=== PATIENT | female | born 1980 | race Caucasian/White ===

== ENCOUNTER 2016-11-20 16:16 | Emergency (ER) | payer BC, OTHER ==
--- NOTE | 2016-11-20 16:28 | EDM.PDOC ---
ED HPI GENERAL MEDICAL PROBLEM - General Chief Complaint: Neck Problem Stated Complaint: FALL/PAIN BACK OF HEAD/NECK Time Seen by Provider: 11/20/16 16:27 Source of Information: Reports: Patient - History of Present Illness INITIAL COMMENTS - FREE TEXT/NARRATIVE: HISTORY AND PHYSICAL: History of present illness: [] Patient was stenting on the running board of her SUV and all the mattress on the roof, she fell off backwards striking her head she complains of head and neck pain 8/10 pain nonradiating, striking the occiput No fever nausea vomiting chills sweats Review of systems: As per history of present illness and below otherwise all systems reviewed and negative. Past medical history: As per history of present illness and as reviewed below otherwise noncontributory. Surgical history: As per history of present illness and as reviewed below otherwise noncontributory. Social history: No reported history of drug or alcohol abuse. Family history: As per history of present illness and as reviewed below otherwise noncontributory. Physical exam: HEENT: Atraumatic, normocephalic, pupils reactive, negative for conjunctival pallor or scleral icterus, mucous membranes moist, throat clear, neck supple, nontender, trachea midline. Lungs: Clear to auscultation, breath sounds equal bilaterally, chest nontender. Heart: S1S2, regular, negative for clicks, rubs, or JVD. Abdomen: Soft, nondistended, nontender. Negative for masses or hepatosplenomegaly. Negative for costovertebral tenderness. Pelvis: Stable nontender. Genitourinary: Deferred. Rectal: Deferred. Extremities: Atraumatic, negative for cords or calf pain. Neurovascular unremarkable. Neuro: Awake, alert, oriented. Cranial nerves II through XII unremarkable. Cerebellum unremarkable. Motor and sensory unremarkable throughout. Exam nonfocal. Diagnostics: [] CT without Cervical spine without Therapeutics: [] Toradol 60 IM Ibuprofen Impression: [] Mild concussion Neck pain/ muscle spasm Definitive disposition and diagnosis as appropriate pending reevaluation and review of above. Neck Pain Score (Numeric/FACES): 7 - Related Data Allergies Allergy/AdvReac Type Severity Reaction Status Date / Time amoxicillin Allergy Itching Verified 11/20/16 16:29 Penicillins Allergy Itching Verified 11/20/16 16:29 venom-honey bee Allergy Swelling Verified 11/20/16 16:29 [bee venom (honey bee)] Home Meds: Home Meds Cyanocobalamin (Vitamin B-12) [B-12] 2,500 mcg SL DAILY 08/12/15 [History] Docusate Sodium [Colace] 100 mg PO BID #50 cap 08/14/15 [Rx] Ibuprofen [Motrin] 200 - 600 mg PO Q6H PRN #50 tablet 08/14/15 [Rx] Past Medical History Other HEENT History: upper denture Other Gastrointestinal History: ventral hernia - Past Surgical History Other Musculoskeletal Surgeries/Procedures:: neck surgery-disk replacement Social & Family History - Tobacco Use Smoking Status *Q: Current Every Day Smoker Years of Tobacco use: 24 Packs/Tins Daily: 0.2 - Recreational Drug Use Recreational Drug Use: No Drug Use in Last 12 Months: No ED ROS GENERAL - Review of Systems Review Of Systems: ROS reveals no pertinent complaints other than HPI. ED EXAM, GENERAL - Physical Exam Exam: See Below Course - Vital Signs Last Recorded V/S: Last Vital Signs Temp 37.0 C 11/20/16 16:29 Pulse 106 H 11/20/16 16:29 Resp 18 11/20/16 16:29 BP 157/104 H 11/20/16 16:29 Pulse Ox 99 11/20/16 16:29 - Orders/Labs/Meds Orders: Active Orders 24 hr Category Date Time Status Cervical Spine wo Cont [CT] Stat Exams 11/20/16 16:29 Taken Head wo Cont [CT] Stat Exams 11/20/16 16:29 Taken Ketorolac [Toradol] Med 11/20/16 17:35 Once 60 mg IM ONETIME ONE Departure - Departure Time of Disposition: 17:35 Disposition: Home, Self-Care 01 Condition: good Clinical Impression: Concussion Forms: ED Department Discharge Additional Instructions: Ibuprofen 400 mg 3 times daily 7-10 days Ice 20 minute intervals 3 times daily Standard head injury precaution Return if symptoms persist or worsen Followup with primary care as needed The following information is given to patients seen in the emergency department who are being discharged to home. This information is to outline your options for follow-up care. We provide all patients seen in our emergency department with a follow-up referral. The need for follow-up, as well as the timing and circumstances, are variable depending upon the specifics of your emergency department visit. If you don't have a primary care physician on staff, we will provide you with a referral. We always advise you to contact your personal physician following an emergency department visit to inform them of the circumstance of the visit and for follow-up with them and/or the need for any referrals to a consulting specialist. The emergency department will also refer you to a specialist when appropriate. This referral assures that you have the opportunity for follow-up care with a specialist. All of these measure are taken in an effort to provide you with optimal care, which includes your follow-up. Under all circumstances we always encourage you to contact your private physician who remains a resource for coordinating your care. When calling for follow-up care, please make the office aware that this follow-up is from your recent emergency room visit. If for any reason you are refused follow-up, please contact the [facility] emergency department at and asked to speak to the emergency department charge nurse. - My Orders Last 24 Hours: My Active Orders 11/20/16 16:29 Cervical Spine wo Cont [CT] Stat Head wo Cont [CT] Stat 11/20/16 17:35 Ketorolac [Toradol] 60 mg IM ONETIME ONE - Assessment/Plan Last 24 Hours: My Active Orders 11/20/16 16:29 Cervical Spine wo Cont [CT] Stat Head wo Cont [CT] Stat 11/20/16 17:35 Ketorolac [Toradol] 60 mg IM ONETIME ONE
[2016-11-20] MEDS ORDERED: Ketorolac 60 MG/2 ML SDV IM ONE (17:35)
[2016-11-20 18:15] VITALS: BP 149/90
--- NOTE | 2016-11-22 17:47 | CT ---
EXAM DATE: 11/20/16 PATIENT'S AGE: 35 Patient: BRITTANY MCKEON Facility: [place], [place] Site . Site : 1980 Study: CT Head [id number]/4/2017 5:00:47 PM Ordering Physician: Maribel Aponte Final Report: INDICATION: fell, heard pop in neck. pain in head/neck TECHNIQUE: CT Head without contrast. COMPARISON: None. FINDINGS: CSF spaces: Within normal limits for age. Brain parenchyma: The ruiz-white differentiation is normal. No sign of mass, hemorrhage, or midline shift. Skull base and calvarium: The visualized paranasal sinuses and mastoid air cells are clear. The visualized orbits are grossly unremarkable. No skull fractures. IMPRESSION: Unremarkable noncontrast head CT. Dictated by: Duyen Golden MD @ 11/20/2016 17:23:49 (Electronic Signature) Report Signed by Proxy and Original Signed Document filed in the Medical Record. [facility]
--- NOTE | 2016-11-22 17:49 | CT ---
EXAM DATE: 11/20/16 PATIENT'S AGE: 35 Patient: BRITTANY MCKEON Facility: [place], [place] Site . Site : 1980 Study: CT Spine Cervical [id number]/4/2017 5:02:42 PM Ordering Physician: Maribel Aponte Final Report: Indication: Fall. Neck pop, pain. Technique: Noncontrast cervical spine CT with coronal and sagittal reformats. Comparison: None. Findings: There are postoperative changes of anterior fusion at C5-6 with underlying degenerative changes at the same level. No evidence of acute fracture or subluxation. Vertebral body heights are well maintained. The prevertebral soft tissues are unremarkable. Impression: 1. No evidence of acute injury in the cervical spine. 2. Postoperative changes of C5-C6 fusion with underlying degenerative change at the same level. Dictated by Duyen Golden MD @ Nov 20 2016 5:23PM (Electronic Signature) Report Signed by Proxy and Original Signed Document filed in the Medical Record.ng degenerative change at the same level. [facility]
== END 2016-11-20 18:13 | disposition home or self-care (01) ==
LOC: MW.ED 16:16
DX: S06.0X0A Concussion without loss of consciousness, initial encounter (principal); M54.2 Cervicalgia; F17.210 Nicotine dependence, cigarettes, uncomplicated; Z88.0 Allergy status to penicillin; Z91.030 Bee allergy status; X58.XXXA Exposure to other specified factors, initial encounter
CPT/HCPCS: 70450; 72125; 96372; 99284; J1885; 99283